=== PATIENT | female | born 1970 | race Caucasian/White ===

== ENCOUNTER 2019-07-21 13:13 | Emergency (ER) | payer OTHER ==
--- NOTE | 2019-07-21 15:21 | EDPHYS ---
Physician Documentation [facility] Name: Lo Zhou Age: 49 yrs Sex: Female : 1970 Arrival Date: 07/21/2019 Time: 13:17 Bed 15 Private MD: ED Physician Osorio Biggs HPI: 07/21 15:16 This 49 yrs old Female presents to ER via Ambulatory with complaints of Sore ann Throat. 15:16 The patient presents with sore throat. The patient describes throat pain as burning, ann constant. Onset: The symptoms/episode began/occurred 2 day(s) ago. Severity of symptoms: At their worst the symptoms were mild, moderate, in the emergency department the symptoms are unchanged. Modifying factors: The symptoms are alleviated by nothing, the symptoms are aggravated by fluids, foods, swallowing. Associated signs and symptoms: Pertinent positives: cough, fever. The patient has not experienced similar symptoms in the past. 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 - Social history:: Smoking status: Patient/guardian denies using tobacco. - Ebola Screening: : No symptoms or risks identified at this time. ROS: 15:16 Constitutional: Negative for fever, chills, and weight loss, Eyes: Negative for injury, ann pain, redness, and discharge, Neck: Negative for injury, pain, and swelling, Cardiovascular: Negative for chest pain, palpitations, and edema, Respiratory: Negative for shortness of breath, cough, wheezing, and pleuritic chest pain, Abdomen/GI: Negative for abdominal pain, nausea, vomiting, diarrhea, and constipation, Back: Negative for injury and pain, : Negative for injury, bleeding, discharge, and swelling, MS/Extremity: Negative for injury and deformity, Skin: Negative for injury, rash, and discoloration, Neuro: Negative for headache, weakness, numbness, tingling, and seizure, Psych: Negative for depression, anxiety, suicide ideation, homicidal ideation, and hallucinations, Allergy/Immunology: Negative for hives, rash, and allergies, Endocrine: Negative for neck swelling, polydipsia, polyuria, polyphagia, and marked weight changes, Hematologic/Lymphatic: Negative for swollen nodes, abnormal bleeding, and unusual bruising. 15:16 ENT: Positive for sore throat. Exam: 15:16 Constitutional: This is a well developed, well nourished patient who is awake, alert, ann and in no acute distress. Head/Face: Normocephalic, atraumatic. Eyes: Pupils equal round and reactive to light, extra-ocular motions intact. Lids and lashes normal. Conjunctiva and sclera are non-icteric and not injected. Cornea within normal limits. Periorbital areas with no swelling, redness, or edema. Neck: Trachea midline, no thyromegaly or masses palpated, and no cervical lymphadenopathy. Supple, full range of motion without nuchal rigidity, or vertebral point tenderness. No Meningismus. Chest/axilla: Normal chest wall appearance and motion. Nontender with no deformity. No lesions are appreciated. Cardiovascular: Regular rate and rhythm with a normal S1 and S2. No gallops, murmurs, or rubs. Normal PMI, no JVD. No pulse deficits. Respiratory: Lungs have equal breath sounds bilaterally, clear to auscultation and percussion. No rales, rhonchi or wheezes noted. No increased work of breathing, no retractions or nasal flaring. Abdomen/GI: Soft, non-tender, with normal bowel sounds. No distension or tympany. No guarding or rebound. No evidence of tenderness throughout. Back: No spinal tenderness. No costovertebral tenderness. Full range of motion. Female : Normal external genitalia. Skin: Warm, dry with normal turgor. Normal color with no rashes, no lesions, and no evidence of cellulitis. MS/ Extremity: Pulses equal, no cyanosis. Neurovascular intact. Full, normal range of motion. Neuro: Awake and alert, GCS 15, oriented to person, place, time, and situation. Cranial nerves II-XII grossly intact. Motor strength 5/5 in all extremities. Sensory grossly intact. Cerebellar exam normal. Normal gait. Psych: Awake, alert, with orientation to person, place and time. Behavior, mood, and affect are within normal limits. 15:16 ENT: Posterior pharynx: Tonsils: bilaterally enlarged, with erythema, Uvula: midline, edematous, erythema, swelling, that is mild, erythema, that is mild, exudate, is not appreciated, peritonsillar mass, is not appreciated, pooling of secretions, that are mild. Vital Signs: 13:48 BP 185 / 118; Pulse 119; Resp 17 S; Temp 98.9(O); Pulse Ox 97% on R/A; Weight 136.08 kg jl7 (R); Height 5 ft. 9 in. (175.26 cm) (R); Pain 10/10; 16:06 BP 153 / 101; Pulse 99; Resp 16; Temp 98; Pulse Ox 99% ; bp 13:48 Body Mass Index 44.30 (136.08 kg, 175.26 cm) jl7 MDM: 13:57 Patient medically screened. [facility] 15:18 Data reviewed: vital signs, nurses notes, lab test result(s). [facility] 07/21 14:15 Order name: Strep; Complete Time: 15:13 [facility] 07/21 15:16 Order name: PO challenge; Complete Time: 15:45 [facility] Administered Medications: 15:40 Drug: Bicillin L-A 1.8 million units Route: IM; Site: right gluteus; bp 16:08 Follow up: Response: No adverse reaction bp Disposition: 07/21/19 15:19 Discharged to Home. Impression: Acute tonsillitis, Streptococcal tonsillitis, Fever, unspecified. - Condition is Fair. - Discharge Instructions: Fever, Adult, Tonsillitis, Tonsillitis, [id number], Fever, Adult, [id number]. - Medication Reconciliation Form, Thank You Letter, Antibiotic Education, Prescription Opioid Use form. - Follow up: Private Physician; When: 2 - 3 days; Reason: Recheck today's complaints, Continuance of care, Re-evaluation by your physician. - Problem is new. - Symptoms have improved. Signatures: Dispatcher [employer] EDOsorio Muñoz MD MD cha Leal, Jahala, RN RN jl7 Chung Howard RN RN bp Corrections: (The following items were deleted from the chart) 16:09 15:19 07/21/2019 15:19 Discharged to Home. Impression: Acute tonsillitis; Streptococcal bp tonsillitis; Fever, unspecified. Condition is Fair. Forms are Medication Reconciliation Form, Thank You Letter, Antibiotic Education, Prescription Opioid Use. Follow up: Private Physician; When: 2 - 3 days; Reason: Recheck today's complaints, Continuance of care, Re-evaluation by your physician. Problem is new. Symptoms have improved. ann
--- NOTE | 2019-07-21 15:21 | ER ---
Nurse's Notes [facility] Name: Lo Zhou Age: 49 yrs Sex: Female : 1970 Arrival Date: 07/21/2019 Time: 13:17 Bed 15 Private MD: Diagnosis: Acute tonsillitis;Streptococcal tonsillitis;Fever, unspecified Presentation: 07/21 13:45 Presenting complaint: Patient states: Sore throat started Tuesday, tongue started jl7 feeling swollen yesterday, reports body aches, denies N/V/D. Transition of care: patient was not received from another setting of care. Onset of symptoms was July 18, 2019. Risk Assessment: Do you want to hurt yourself or someone else? Patient reports no desire to harm self or others. Initial Sepsis Screen: Does the patient meet any 2 criteria? No. Patient's initial sepsis screen is negative. Does the patient have a suspected source of infection? No. Patient's initial sepsis screen is negative. Care prior to arrival: None. 13:45 Method Of Arrival: Ambulatory [facility] 13:45 Acuity: ISABELLA 3 jl7 Triage Assessment: 13:48 General: Appears in no apparent distress. uncomfortable, Behavior is calm, cooperative, jl7 appropriate for age. Pain: Complains of pain in sore throat Pain currently is 10 out of 10 on a pain scale. Quality of pain is described as sharp, Pain began 2-3 days ago. EENT: Oral mucosa is moist. 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 - Social history:: Smoking status: Patient/guardian denies using tobacco. - Ebola Screening: : No symptoms or risks identified at this time. Screenin:53 Abuse screen: Denies threats or abuse. Denies injuries from another. Nutritional bp screening: No deficits noted. Tuberculosis screening: No symptoms or risk factors identified. Fall Risk None identified. Assessment: 13:53 General: SEE TRIAGE NOTE. Respiratory: Airway is patent Respiratory effort is even, bp unlabored, Breath sounds are clear. 15:45 Reassessment: PT ON SHOT TIME. bp 16:07 Reassessment: PT D/C HOME AMBULATORY WITH FAMILY, DX WITH STREP PHARYNGITIS. bp Vital Signs: 13:48 BP 185 / 118; Pulse 119; Resp 17 S; Temp 98.9(O); Pulse Ox 97% on R/A; Weight 136.08 kg jl7 (R); Height 5 ft. 9 in. (175.26 cm) (R); Pain 10/10; 16:06 BP 153 / 101; Pulse 99; Resp 16; Temp 98; Pulse Ox 99% ; bp 13:48 Body Mass Index 44.30 (136.08 kg, 175.26 cm) jl7 ED Course: 13:17 Patient arrived in ED. mr 13:48 Triage completed. jl7 13:48 Arm band placed on right wrist. 7 13:53 Chung Howard, RN is Primary Nurse. bp 13:53 Patient has correct armband on for positive identification. Bed in low position. Call bp light in reach. Side rails up X2. 13:57 Osorio Biggs MD is Attending Physician. ann 16:07 No provider procedures requiring assistance completed. Patient did not have IV access bp during this emergency room visit. Administered Medications: 15:40 Drug: Bicillin L-A 1.8 million units Route: IM; Site: right gluteus; bp 16:08 Follow up: Response: No adverse reaction bp Outcome: 15:19 Discharge ordered by . ann 16:07 Discharged to home ambulatory, with family. bp 16:07 Condition: stable 16:07 Discharge instructions given to patient, Instructed on discharge instructions, follow up and referral plans. Demonstrated understanding of instructions, follow-up care. 16:09 Patient left the ED. bp Signatures: Osorio Biggs MD MD cha Rivera, Mary mr LealJudy, RN RN [facility] Chung Howard, LOUISE RN bp
[2019-07-21] MEDS ORDERED: PEN G BENZ LA 2.4 MU/4 ML SYRINGE IM ONE (15:43)
[2019-07-21 17:58] VITALS: BP 153/101; TEMP 98; O2SAT 99
== END 2019-07-21 16:09 | disposition home or self-care (01) ==
LOC: ER 13:13
DX: J03.00 Acute streptococcal tonsillitis, unspecified (principal); R50.9 Fever, unspecified; Z88.6 Allergy status to analgesic agent
CPT/HCPCS: 87081; 96372; 99283; J0561